=== PATIENT | male | born 1980 | race Two or more races ===

== ENCOUNTER 2021-12-08 11:57 | Inpatient (IN) | payer BC ==
[2021-12-08 13:03] LABS: BASO % 0.3 % (0-2.0); EOS % 0.8 % (0-4.5); HEMATOCRIT 40.8 % (35.4-49); LYMPH % 16.1 % (8-40); MCH 30.5 pg (25.7-33.7); MCHC 34.4 g/dl (32.0-35.9); MEAN CELL VOLUME 88.8 fl (80-96); MEAN PLT VOLUME 7.6 fl (7.5-11.1); MONO % 8.1 % (3.8-10.2); NEUT % 74.7 % (42.8-82.8); PLATELET COUNT 285 10^3/uL (134-434); RBC 4.59 M/mm3 (4.00-5.60); RDW 13.6 % (11.9-15.9); WHITE BLOOD COUNT 13.2 K/mm3 (4.0-10.0)
[2021-12-08 13:23] LABS: ALBUMIN 4.2 g/dl (3.4-5.0); CALCIUM 9.4 mg/dL (8.5-10.1)
[2021-12-08 13:24] LABS: BLOOD UREA NITROGEN 22.3 mg/dL (7-18)
[2021-12-08 13:26] LABS: CREATININE 0.8 mg/dL (0.55-1.3)
[2021-12-08 13:28] LABS: BILIRUBIN,TOTAL 0.6 mg/dL (0.2-1); TOT PROT 8.1 g/dl (6.4-8.2)
[2021-12-08] MEDS ORDERED: PIPERACILLIN/TAZOB 3.375 GM 3.375 GM in DEXTROSE 5%-WATER - 50 ML IVPB ONE (14:49)
[2021-12-08] MEDS ORDERED: VANCOMYCIN 1 GM in D5W (PRE-DOCKED) 1,000 MG/250 ML IVPB ONE (14:49)
[2021-12-08] MEDS ORDERED: VANCOMYCIN/WATER FOR INJ (PEG) 1,000 MG/200 ML BAG IVPB ONE (14:55)
[2021-12-08] MEDS ORDERED: PIPERACILLIN/TAZOB 3.375 GM 3.375 GM/50 ML BAG IVPB ONE (14:56)
[2021-12-08] MEDS ORDERED: ACETAMINOPHEN 1000 MG/100 ML BAG IVPB ONE (16:15)
[2021-12-08] MEDS ORDERED: ACETAMINOPHEN INJECTION 100 ML IVPB ONE (16:17)
[2021-12-08 18:36] VITALS: BMI 32.6
[2021-12-08] MEDS ORDERED: oxyCODONE HCL 5 MG TABLET PO PRN (20:02)
[2021-12-08] MEDS: LACTATED RINGERS SOLUTION 1,000 ML IV SCH (21:06)
[2021-12-08] MEDS: ACETAMINOPHEN 500 MG TABLET (FP) PO PRN (22:12)
[2021-12-08] MEDS: PIPERACILLIN/TAZOB 3.375 GM 3.375 GM in DEXTROSE 5%-WATER - 50 ML IVPB SCH (23:14)
[2021-12-09] MEDS ORDERED: VANCOMYCIN/WATER FOR INJ (PEG) 1,000 MG/200 ML BAG IVPB SCH (04:00)
[2021-12-09] MEDS: ACETAMINOPHEN 500 MG TABLET (FP) PO PRN ×2 (04:36→23:28)
[2021-12-09] MEDS: PIPERACILLIN/TAZOB 3.375 GM 3.375 GM in DEXTROSE 5%-WATER - 50 ML IVPB SCH ×4 (06:11→19:23)
[2021-12-09 09:53] LABS: BASO % 0.3 % (0-2.0); EOS % 0.5 % (0-4.5); HEMATOCRIT 37.7 % (35.4-49); HEMOGLOBIN 13.1 GM/dL (11.7-16.9); LYMPH % 14.3 % (8-40); MCH 30.7 pg (25.7-33.7); MCHC 34.9 g/dl (32.0-35.9); MEAN CELL VOLUME 88.1 fl (80-96); MONO % 6.8 % (3.8-10.2); NEUT % 78.1 % (42.8-82.8); PLATELET COUNT 276 10^3/uL (134-434); RBC 4.28 M/mm3 (4.00-5.60); RDW 13.1 % (11.9-15.9); WHITE BLOOD COUNT 14.6 K/mm3 (4.0-10.0)
[2021-12-09 09:56] LABS: CALCIUM 8.5 mg/dL (8.5-10.1)
[2021-12-09 09:58] LABS: ALBUMIN 3.5 g/dl (3.4-5.0)
[2021-12-09 09:59] LABS: PHOSPHOROUS 3.2 mg/dL (2.5-4.9)
[2021-12-09 10:00] LABS: CREATININE 0.8 mg/dL (0.55-1.3)
[2021-12-09] MEDS ORDERED: ENOXAPARIN NA (PORCINE) 30 MG/0.3 ML DISP.SYRIN SQ SCH (10:00)
[2021-12-09] MEDS ORDERED: ENOXAPARIN NA (PORCINE) 40 MG/0.4 ML DISP.SYRIN SQ SCH (10:00)
[2021-12-09 10:01] LABS: BILIRUBIN,DIRECT 0.2 mg/dL (0.0-0.2)
[2021-12-09 10:03] LABS: TOT PROT 7.4 g/dl (6.4-8.2)
[2021-12-09 11:14] LABS: HIV INTERPRETATION NEGATIVE (NEGATIVE)
[2021-12-09] MEDS: VANCOMYCIN 1 GM in D5W (PRE-DOCKED) 1,000 MG/250 ML IVPB SCH ×2 (12:38→19:23)
[2021-12-09] MEDS: VANCOMYCIN/WATER 1250 MG 1,250 MG/250 ML BAG IVPB SCH (14:52)
[2021-12-09] MEDS: LACTATED RINGERS SOLUTION 1,000 ML IV SCH (20:53)
[2021-12-10] MEDS: VANCOMYCIN/WATER 1250 MG 1,250 MG/250 ML BAG IVPB SCH (03:18)
[2021-12-10] MEDS ORDERED: oxyCODONE HCL 5 MG TABLET PO PRN ×3 (08:54→10:04)
[2021-12-10] MEDS ORDERED: ONDANSETRON 4 MG/2 ML VIAL IVPUSH PRN ×2 (08:54→10:04)
[2021-12-10] MEDS ORDERED: MIDAZOLAM HCL 2 MG/2 ML SINGLE DOSE VIAL ONE (08:57)
[2021-12-10] MEDS ORDERED: PROPOFOL 20 ML ONE (08:57)
[2021-12-10] MEDS ORDERED: ROCURONIUM BROMIDE 50 MG/5 ML SYRINGE ONE (08:57)
[2021-12-10] MEDS ORDERED: LACTATED RINGERS SOLUTION 1,000 ML IV SCH (09:00)
[2021-12-10] MEDS ORDERED: HYDROGEN PEROXIDE 473 ML PO ONE (09:30)
[2021-12-10] MEDS ORDERED: NEOSTIGMINE METHYLSULFATE 0.5 MG/ML - 10 ML MDV ONE (09:37)
[2021-12-10 09:39] LABS: BASO % 0.4 % (0-2.0); EOS % 1.1 % (0-4.5); HEMATOCRIT 41.1 % (35.4-49); HEMOGLOBIN 13.9 GM/dL (11.7-16.9); LYMPH % 22.2 % (8-40); MCHC 33.7 g/dl (32.0-35.9); MEAN CELL VOLUME 89.1 fl (80-96); MONO % 6.9 % (3.8-10.2); NEUT % 69.4 % (42.8-82.8); PLATELET COUNT 323 10^3/uL (134-434); RBC 4.62 M/mm3 (4.00-5.60); RDW 13.3 % (11.9-15.9); WHITE BLOOD COUNT 11.1 K/mm3 (4.0-10.0)
[2021-12-10 09:42] LABS: INR 1.14 (0.83-1.09); PROTHROMBIN TIME (PATIENT) 13.1 SEC (9.7-13.0)
[2021-12-10 09:45] LABS: ACTIVATED PTT 27.9 SECONDS (25.2-36.5)
[2021-12-10 09:57] LABS: CALCIUM 9.2 mg/dL (8.5-10.1)
[2021-12-10 09:58] LABS: ALBUMIN 3.8 g/dl (3.4-5.0); BLOOD UREA NITROGEN 14.9 mg/dL (7-18); MAGNESIUM 2.2 mg/dL (1.8-2.4)
[2021-12-10 10:01] LABS: CREATININE 0.7 mg/dL (0.55-1.3); PHOSPHOROUS 3.3 mg/dL (2.5-4.9)
[2021-12-10 10:02] LABS: BILIRUBIN,TOTAL 0.8 mg/dL (0.2-1); TOT PROT 8.1 g/dl (6.4-8.2)
[2021-12-10] MEDS ORDERED: ACETAMINOPHEN 500 MG TABLET (FP) PO PRN (10:04)
[2021-12-10] MEDS ORDERED: VANCOMYCIN/WATER 1250 MG 1,250 MG/250 ML BAG IVPB SCH (15:00)
[2021-12-10] MEDS: CLINDAMYCIN 600MG PREMIX IVPB 600 MG/50 ML BAG IVPB SCH ×2 (15:05→20:05)
[2021-12-10] MEDS: LACTATED RINGERS SOLUTION 1,000 ML IV SCH (15:07)
[2021-12-11] MEDS: CLINDAMYCIN 600MG PREMIX IVPB 600 MG/50 ML BAG IVPB SCH ×4 (02:36→21:22)
[2021-12-11] MEDS: LACTOBACILLUS ACIDOPHILUS 1 TABLET PO SCH (10:27)
[2021-12-11] MEDS: ENOXAPARIN NA (PORCINE) 40 MG/0.4 ML DISP.SYRIN SQ SCH (10:27)
[2021-12-11 13:03] LABS: BASO % 0.4 % (0-2.0); EOS % 0.5 % (0-4.5); HEMATOCRIT 36.3 % (35.4-49); HEMOGLOBIN 12.3 GM/dL (11.7-16.9); MCH 29.9 pg (25.7-33.7); MCHC 33.8 g/dl (32.0-35.9); MEAN CELL VOLUME 88.6 fl (80-96); MEAN PLT VOLUME 7.9 fl (7.5-11.1); MONO % 6.1 % (3.8-10.2); PLATELET COUNT 325 10^3/uL (134-434); RDW 13.5 % (11.9-15.9); WHITE BLOOD COUNT 12.7 K/mm3 (4.0-10.0)
[2021-12-11 13:26] LABS: CALCIUM 8.6 mg/dL (8.5-10.1)
[2021-12-11 13:27] LABS: BLOOD UREA NITROGEN 16.4 mg/dL (7-18)
[2021-12-11 13:30] LABS: CREATININE 0.6 mg/dL (0.55-1.3)
[2021-12-11] MEDS: LACTATED RINGERS SOLUTION 1,000 ML IV SCH (21:21)
[2021-12-11 21:51] VITALS: RESP 20
[2021-12-12] MEDS: CLINDAMYCIN 600MG PREMIX IVPB 600 MG/50 ML BAG IVPB SCH ×3 (02:53→14:27)
[2021-12-12 08:52] LABS: HEMATOCRIT 38.1 % (35.4-49); HEMOGLOBIN 13.4 GM/dL (11.7-16.9); MCH 30.7 pg (25.7-33.7); MCHC 35.1 g/dl (32.0-35.9); MEAN CELL VOLUME 87.6 fl (80-96); MEAN PLT VOLUME 7.4 fl (7.5-11.1); PLATELET COUNT 350 10^3/uL (134-434); RBC 4.35 M/mm3 (4.00-5.60); RDW 13.4 % (11.9-15.9); WHITE BLOOD COUNT 7.7 K/mm3 (4.0-10.0)
[2021-12-12] MEDS: LACTOBACILLUS ACIDOPHILUS 1 TABLET PO SCH (08:59)
[2021-12-12] MEDS: ENOXAPARIN NA (PORCINE) 40 MG/0.4 ML DISP.SYRIN SQ SCH (08:59)
[2021-12-12 09:22] LABS: ALBUMIN 3.4 g/dl (3.4-5.0)
[2021-12-12 09:23] LABS: CALCIUM 8.9 mg/dL (8.5-10.1)
[2021-12-12 09:25] LABS: MAGNESIUM 1.7 mg/dL (1.8-2.4); PHOSPHOROUS 4.5 mg/dL (2.5-4.9)
[2021-12-12 09:26] LABS: CREATININE 0.8 mg/dL (0.55-1.3)
[2021-12-12 09:27] LABS: BILIRUBIN,TOTAL 0.5 mg/dL (0.2-1); TOT PROT 7.4 g/dl (6.4-8.2)
[2021-12-12 11:10] LABS: ANISOCYTOSIS 0; MACROCYTOSIS 0; PLATELET ESTIMATE NORMAL
[2021-12-12] MEDS: LACTATED RINGERS SOLUTION 1,000 ML IV SCH (14:28)
[2021-12-12 15:59] VITALS: BP 124/76; PULSE 72; TEMP 98.8
== END 2021-12-12 16:11 | disposition home or self-care (01) | DRG 603 ==
LOC: JER 11:57 → JERBED 15:09 → J7W 18:27 → J8W 12-10 11:12
PROVIDERS: ADMIT Internal Medicine; ATTEND Internal Medicine
PROC: 0J950ZX Drainage of Left Neck Subcutaneous Tissue and Fascia, Open Approach, Diagnostic (ICD-10-PCS; principal; 2021-12-10 09:29)
DX: L02.11 Cutaneous abscess of neck (principal); R91.1 Solitary pulmonary nodule; B95.62 Methicillin resistant Staphylococcus aureus infection as the cause of diseases classified elsewhere; L03.221 Cellulitis of neck
CPT/HCPCS: 36415; 70491-TC; 80048; 80053; 80076; 83735; 84100; 84439; 84443; 85025; 85610; 85730; 87040; 87070; 87186; 87205; 87389; 93005; 93010; 94760; 99285-25; C9803-CS; Q9967; U0003; U0005